=== PATIENT | female | born 1960 | race Caucasian/White ===

== ENCOUNTER → 2019-11-24 | Outpatient (CLI) | payer BC ==
--- NOTE | 2019-11-27 08:50 | Diagnostic Imaging Report ---
INDICATION: Routine screening. Comparison is made with prior mammogram from 04/08/2017 and 12/20/2015. 2-D and 3-D bilateral screening mammography was performed with a Computer Aided Detection (CAD) system. 3-D tomosynthesis was also performed and reviewed. FINDINGS: Scattered fibroglandular densities are identified bilaterally. The parenchymal pattern is stable. No mass or malignant appearing microcalcifications are seen. Axillae are unremarkable. IMPRESSION: No mammographic features suspicious for malignancy are identified. ACR BI-RADS Category 1: Negative. Result letter will be mailed to the patient. Note: At least 10% of breast cancer is not imaged by mammography. Dictated by: Dictated on workstation # [id number]
== END ==
LOC: RAD 07:51
PROVIDERS: ATTEND Obstetrics & Gynecology
DX: Z12.31 Encounter for screening mammogram for malignant neoplasm of breast (principal)
CPT/HCPCS: 77067

== ENCOUNTER 2020-09-15 16:10 | Emergency (ER) | payer BC ==
[~2020-09-15] VITALS: Ht 167 cm; Wt 83.9 kg
[2020-09-15] MEDS ORDERED: LACTATED RINGERS 1,000 ML IV ONE ×2 (16:30)
[2020-09-15] MEDS ORDERED: ONDANSETRON 4 MG/2 ML (SDV) Z0FRAN IVP ONE (16:30)
[2020-09-15 16:53] LABS: BASOPHILS % (AUTO) 0 % (0-10); EOSINOPHILS % (AUTO) 0 % (0-10); HEMATOCRIT 45 % (35-52); HEMOGLOBIN 14.5 g/dL (11.5-16.0); LYMPHOCYTES # (AUTO) 0.8 10^3/uL (1.0-4.0); LYMPHOCYTES % (AUTO) 11 % (12-44); MEAN CORPUSCULAR HEMOGLOBIN 27 pg (25-34); MEAN CORPUSCULAR HGB CONC 32 g/dL (32-36); MEAN CORPUSCULAR VOLUME 84 fL (80-99); MEAN PLATELET VOLUME 9.5 fL (9.0-12.2); MONOCYTES # (AUTO) 0.5 10^3/uL (0.0-1.0); MONOCYTES % (AUTO) 7 % (0-12); NEUTROPHILS # (AUTO) 5.7 10^3/uL (1.8-7.8); NEUTROPHILS % (AUTO) 81 % (42-75); PLATELET COUNT 242 10^3/uL (130-400); WHITE BLOOD COUNT 7.1 10^3/uL (4.3-11.0)
[2020-09-15 16:56] LABS: ABG BASE EXCESS 2.2 MMOL/L (-2.5-2.5); ABG OXYGEN SATURATION 93 % (94-100); ABG PCO2 32 MMHG (35-45); ABG PH 7.51 (7.37-7.43); ABG PO2 64 MMHG (79-93); ABG TCO2 26.3 MMOL/L (21.0-31.0); ALLENS TEST YES-POS; INSPIRED O2 RA; PATIENT TEMP 97.8; VENTILATOR NO
[2020-09-15 17:02] LABS: ALBUMIN 4.1 GM/DL (3.2-4.5); CHLORIDE 100 MMOL/L (98-107); POTASSIUM 3.5 MMOL/L (3.6-5.0); SODIUM 139 MMOL/L (135-145)
[2020-09-15 17:03] LABS: CALCIUM 9.6 MG/DL (8.5-10.1)
[2020-09-15 17:04] LABS: GLUCOSE 116 MG/DL (70-105); TOTAL PROTEIN 8.3 GM/DL (6.4-8.2)
[2020-09-15 17:05] LABS: CARBON DIOXIDE 23 MMOL/L (21-32)
--- NOTE | 2020-09-15 17:05 | ED GI ---
General Stated Complaint: COVID +, N/V Source of Information: Patient Exam Limitations: No Limitations (MARY MEI) History of Present Illness Date Seen by Provider: Sep 15, 2020 Time Seen by Provider: 16:18 Initial Comments Patient presents to the ER by private conveyance from home with chief complaint of nausea vomiting and dehydration for the past couple days. She is day 10 of symptoms for presumed COVID-19. Her is just about over a course of positive COVID-19. She is a patient of Dr. Seaman's. She was using some [id number] pills with no success treating her own nausea. She is now having diarrhea but she does have loss of sense of taste and cough. She does not have a history of lung disease. She only has hyperlipidemia. She called Dr. Seaman and was sent here for IV fluids and nausea medicine. She has a pulse oximeter at home and her oxygen sats have been in the upper 90s. (MARY MEI) Allergies and Home Medications Allergies Coded Allergies: No Known Drug Allergies (Unverified , 09/15/20) Home Medications Ondansetron 4 Mg Tab.rapdis, 4 MG PO Q6H PRN for NAUSEA/VOMITING Prescribed by: MARY MEI on 09/15/20 181 Patient Home Medication List Home Medication List Reviewed: Yes (MARY MEI) Review of Systems Review of Systems Constitutional: No chills, No diaphoresis EENTM: No Blurred Vision, No Double Vision Respiratory: Denies Cough, Denies Orthopnea Cardiovascular: Denies Chest Pain, Denies Lightheadedness Gastrointestinal: Denies Abdominal Pain, Denies Constipated, Denies Diarrhea; Nausea, Poor Appetite, Poor Fluid Intake, Vomiting Genitourinary: Denies Burning, Denies Discharge Musculoskeletal: No back pain, No joint pain (MARY MEI) All Other Systems Reviewed Negative Unless Noted: Yes (MARY MEI) Past Bqdesoc-Mttkkb-Rsieeb Hx Patient Social History Alcohol Use: Denies Use Recreational Drug Use: No Smoking Status: Never a Smoker Recent Foreign Travel: No Contact w/Someone Who Travel: No (MARY MEI) Physical Exam Vital Signs Vital Signs - First Documented 09/15/20 16:20 Temp 36.5 Pulse 106 Resp 20 B/P (MAP) 175/90 (118) Pulse Ox 95 O2 Delivery Room Air (PAULA GUTIERRESP) Vital Signs Capillary Refill : (MARY MEI) Height/Weight/BMI Height: '" Weight: lbs. oz. kg; BMI Method: General Appearance: WD/WN, mild distress HEENT: PERRL/EOMI, pharynx normal Neck: full range of motion, supple, normal inspection Respiratory: lungs clear, normal breath sounds, no respiratory distress, no accessory muscle use Cardiovascular: normal peripheral pulses, regular rate, rhythm Peripheral Pulses: 2+ Radial Pulses (R), 2+ Radial Pulses (L) Gastrointestinal: normal bowel sounds, non tender, soft Neurologic/Psychiatric: alert, normal mood/affect, oriented x 3 Skin: normal color, warm/dry (MARY MEI) Progress/Results/Core Measures Results/Orders Lab Results Laboratory Tests Test 09/15/20 16:33 09/15/20 17:08 09/15/20 17:36 Range/Units White Blood Count 7.1 4.3-11.0 10^3/uL Red Blood Count 5.37 H 3.80-5.11 10^6/uL Hemoglobin 14.5 11.5-16.0 g/dL Hematocrit 45 35-52 % Mean Corpuscular Volume 84 80-99 fL Mean Corpuscular Hemoglobin 27 25-34 pg Mean Corpuscular Hemoglobin Concent 32 32-36 g/dL Red Cell Distribution Width 13.2 10.0-14.5 % Platelet Count 242 130-400 10^3/uL Mean Platelet Volume 9.5 9.0-12.2 fL Immature Granulocyte % (Auto) 0 % Neutrophils (%) (Auto) 81 H 42-75 % Lymphocytes (%) (Auto) 11 L 12-44 % Monocytes (%) (Auto) 7 0-12 % Eosinophils (%) (Auto) 0 0-10 % Basophils (%) (Auto) 0 0-10 % Neutrophils # (Auto) 5.7 1.8-7.8 10^3/uL Lymphocytes # (Auto) 0.8 L 1.0-4.0 10^3/uL Monocytes # (Auto) 0.5 0.0-1.0 10^3/uL Eosinophils # (Auto) 0.0 0.0-0.3 10^3/uL Basophils # (Auto) 0.0 0.0-0.1 10^3/uL Immature Granulocyte # (Auto) 0.0 0.0-0.1 10^3/uL Blood Gas Puncture Site LR Blood Gas Patient Temperature 97.8 Arterial Blood pH 7.51 H 7.37-7.43 Arterial Blood Partial Pressure CO2 32 L 35-45 MMHG Arterial Blood Partial Pressure O2 64 L 79-93 MMHG Arterial Blood HCO3 25 23-27 MMOL/L Arterial Blood Total CO2 26.3 21.0-31.0 MMOL/L Arterial Blood Oxygen Saturation 93 L 94-100 % Arterial Blood Base Excess 2.2 -2.5-2.5 MMOL/L Prateek Test YES-POS Blood Gas Ventilator Setting NO Blood Gas Inspired Oxygen RA Sodium Level 139 135-145 MMOL/L Potassium Level 3.5 L 3.6-5.0 MMOL/L Chloride Level 100 98-107 MMOL/L Carbon Dioxide Level 23 21-32 MMOL/L Anion Gap 16 H 5-14 MMOL/L Blood Urea Nitrogen 11 7-18 MG/DL Creatinine 0.89 0.60-1.30 MG/DL Estimat Glomerular Filtration Rate > 60 BUN/Creatinine Ratio 12 Glucose Level 116 H 70-105 MG/DL Calcium Level 9.6 8.5-10.1 MG/DL Corrected Calcium 9.5 8.5-10.1 MG/DL Total Bilirubin 0.4 0.1-1.0 MG/DL Aspartate Amino Transf (AST/SGOT) 27 5-34 U/L Alanine Aminotransferase (ALT/SGPT) 26 0-55 U/L Alkaline Phosphatase 77 40-136 U/L Total Protein 8.3 H 6.4-8.2 GM/DL Albumin 4.1 3.2-4.5 GM/DL Coronavirus 2019 (RADHA) Positive H Negative Urine Color YELLOW Urine Clarity CLEAR Urine pH 7.5 5-9 Urine Specific [place] 1.020 1.016-1.022 Urine Protein NEGATIVE NEGATIVE Urine Glucose (UA) NEGATIVE NEGATIVE Urine Ketones NEGATIVE NEGATIVE Urine Nitrite NEGATIVE NEGATIVE Urine Bilirubin NEGATIVE NEGATIVE Urine Urobilinogen 0.2 < = 1.0 MG/DL Urine Leukocyte Esterase NEGATIVE NEGATIVE Urine RBC (Auto) TRACE-I NEGATIVE Urine RBC RARE /HPF Urine WBC RARE /HPF Urine Squamous Epithelial Cells 0-2 /HPF Urine Crystals NONE /LPF Urine Bacteria TRACE /HPF Urine Casts NONE /LPF Urine Mucus NEGATIVE /LPF Urine Culture Indicated NO (PAULA GUTIERRES) Micro Results Microbiology 09/15/20 Influenza Types A,B Antigen (NELL) - Final, Complete (NENITAPAULA PARDO) Medications Given in ED Current Medications Medications Dose Ordered Sig/Belkis Route Start Time Stop Time Status Last Admin Dose Admin Ketorolac Tromethamine 30 mg ONCE ONCE IVP 09/15/20 17:15 09/15/20 17:16 DC 09/15/20 17:17 30 MG Lactated Ringer's 1,000 ml @ 0 mls/hr Q0M ONCE IV 09/15/20 16:30 09/15/20 16:33 DC 09/15/20 16:54 1,000 MLS/HR Lactated Ringer's 1,000 ml @ 0 mls/hr Q0M ONCE IV 09/15/20 16:30 09/15/20 16:33 DC 09/15/20 17:38 1,000 MLS/HR Ondansetron HCl 8 mg ONCE ONCE IVP 09/15/20 16:30 09/15/20 16:33 DC 09/15/20 16:51 8 MG (PAULA GUTIERRES) Vital Signs/I&O 09/15/20 16:20 Temp 36.5 Pulse 106 Resp 20 B/P (MAP) 175/90 (118) Pulse Ox 95 O2 Delivery Room Air (PAULA GUTIERRES) Progress Progress Note #1: Time: 17:01 Progress Note Ondansetron, 2000 cc IV fluids basic labs and urine. A septic vital signs. Oxygen saturation 96%. Room air nonlabored breathing. Progress Note #2: Time: 17:15 Progress Note Nausea has resolved. The first liter is almost in. We will give her some Toradol as her labs are unremarkable. ABG does demonstrate some increased work of breathing. We have asked respiratory therapy to come down and try and qualify her for home oxygen as she is borderline needing it. Her oxygen saturation stays 95 to 96% but her ABG demonstrates that her PaO2 is mild hypoxemia and it is causing her to blow off her CO2 and make her respiratory alkalotic which may be further contributing to her nausea. Progress Note #3: Time: 18:10 Progress Note Respiratory therapy is here to do a walking challenge home O2 certification. We have passed care of the patient over to Dr. Paula Gutierres. She will help the patient set up for DME oxygen if she qualifies. (MARY MEI) Progress Note : Progress Note 1830 Per RT, patient maintained SaO2 92-93% with ambulation. Does not qualify for home O2. No SOA with ambulation. Not working discharge precautions and return instructions discussed with the patient. All questions answered. (PAULA GUTIERRES) Transfer of Care Time: 18:10 Care transferred to: Paula Gutierres (MARY MEI) Departure Impression Primary Impression: COVID-19 Additional Impressions: Dehydration determined by examination Hypoxemia Disposition: HOME, SELF-CARE Condition: Improved Departure-Patient Inst. Decision time for Depature: 17:37 (MARY MEI) Referrals: EMILIE SEAMAN MD NO,LOCAL PHYSICIAN (PCP) Primary Care Physician Patient Instructions: Coronavirus Disease 2019 (COVID-19) (DC), Dehydration, Adult ED Add. Discharge Instructions: Encourage lots of fluids especially sports drinks over the next several days. Ondansetron 1 tablet every 6 hours under the tongue as necessary for nausea and/or vomiting. Tylenol and/or Motrin as necessary for body aches, malaise or headache. Return to the ER if your oxygen sats are staying consistently below 94% or you are having other severe, worsening, or worrisome symptoms. Scripts Ondansetron (Ondansetron Odt) 4 Mg Tab.rapdis 4 MG PO Q6H PRN for NAUSEA/VOMITING, #15 TAB 0 Refills Prov: MARY MEI 09/15/20 Copy Copies To 1: EMILIE SEAMAN MD, TITUS J Sep 15, 2020 17:05 PAULA GUTIERRES Sep 15, 2020 18:32
[2020-09-15 17:06] LABS: BILIRUBIN,TOTAL 0.4 MG/DL (0.1-1.0)
[2020-09-15 17:08] LABS: ALKALINE PHOSPHATASE 77 U/L (40-136); CREATININE SERUM 0.89 MG/DL (0.60-1.30); GFR ESTIMATED > 60
[2020-09-15 17:09] LABS: BUN/CREATININE RATIO 12
[2020-09-15 17:11] LABS: ALANINE AMINOTRANSFERASE 26 U/L (0-55)
[2020-09-15] MEDS ORDERED: KETOROLAC 30 MG/ML VIAL ONE (17:11)
[2020-09-15] MEDS ORDERED: KETOROLAC 30 MG/ML VIAL IVP ONE (17:15)
[2020-09-15 17:46] LABS: BILIRUBIN,URINE NEGATIVE (NEGATIVE); CLARITY,URINE CLEAR; COLOR,URINE YELLOW; GLUCOSE, URINE (UA) NEGATIVE (NEGATIVE); KETONES,URINE NEGATIVE (NEGATIVE); LEUKOCYTE ESTERASE ,URINE NEGATIVE (NEGATIVE); NITRITE,URINE NEGATIVE (NEGATIVE); PH,URINE 7.5 (5-9); PROTEIN,URINE NEGATIVE (NEGATIVE)
--- NOTE | 2020-09-15 17:51 | NUR ---
SPOKE TO SPOUSE PER PT'S REQUEST. PLAN OF CARE WAS REVIEWED, UNDERSTANDING WAS VOICED.
[2020-09-15 18:05] LABS: BACTERIA,URINE TRACE /HPF; RBC,URINE RARE /HPF; SQUAMOUS EPITHELIAL CELL,UR 0-2 /HPF; WBC,URINE RARE /HPF
[2020-09-15] MEDS ORDERED: ONDA4TAB11 PO (18:12)
[2020-09-15] MEDS ORDERED: RX-ONDANSETRON 4 MG ODT (ZOFRAN) PPK #4 PO STA (18:13)
--- NOTE | 2020-09-15 18:16 | NUR ---
HOME O2 QUALIFICATION DONE. START TIME 1809 END 1815. PT HAD NO SAT DROP DURING THE WALK BELOW 92%. PT DOES NOT QUALIFY FOR HOME O2 AT THIS TIME. RN AND NOTIFIED.
[2020-09-15 18:50] VITALS: BP 139/96
== END 2020-09-15 18:50 | disposition home or self-care (01) ==
LOC: EDUNIT# 16:10 → ER 16:12
DX: U07.1 COVID-19 (principal); E86.0 Dehydration; R09.02 Hypoxemia
CPT/HCPCS: 80053; 81000; 82805; 85025; 87804; 99285; U0002; 36415; 87635

== ENCOUNTER → 2020-12-17 | Outpatient (CLI) | payer BC ==
[~2020-12-17] MED LIST: ONDA4TAB11 PO
--- NOTE | 2020-12-17 10:27 | Diagnostic Imaging Report ---
INDICATION: Postmenopausal state COMPARISON: None available FINDINGS: AP Spine L1-L4: [BMD (g/cm2): 1.079] [T-Score: -1.0] [Z-Score: 0.2] [BMD Previous: na] [BMD % Change: na] LT Hip Neck: [BMD (g/cm2): 0.987] [T-Score: -0.4] [Z-Score: 0.6] LT Hip Total: [BMD (g/cm2):1.048] [T-Score:0.3] [Z-Score: 1.0] [BMD Previous: na] [BMD % Change: na] RT Hip Neck: [BMD (g/cm2):0.904] [T-Score:-1.0] [Z-Score:0.0] RT Hip Total: [BMD (g/cm2):1.012] [T-score:0.0] [Z-Score:0.7] [BMD Previous:na] [BMD % Change:na] *Indicates significant change from prior examination based on 95% confidence level. World Health Organization criteria for BMD interpretation classify patients as Normal (T-score at or above -1.0), Osteopenic (T-score between -1.0 and -2.5) or Osteoporotic (T-score at or below -2.5). LIMITATIONS AND MODIFICATION: None. IMPRESSION: 1. Normal bone mineral density. However, bone mineral density within the hips and lumbar spine are at the lower limits of normal. 2. Baseline examination. 3. See below National Osteoporosis Foundation guidelines on when to potentially initiate pharmacologic therapy. Based on the National Osteoporosis Foundation Guidelines, pharmacologic treatment should be initiated in any of the following, unless clinical conditions suggest otherwise: * Any patient with prior fragility fracture of the hip or vertebrae. A spine fracture indicates 5X risk for subsequent spine fracture and 2X risk for subsequent hip fracture. * Osteoporosis (T-score <-2.5). * Postmenopausal women and men age 50 and older with low bone mass/osteopenia (T-score between -1.0 and -2.5) by DXA and 10-year major osteoporotic fracture greater than 20% or a 10-year probability of hip fracture greater than 3%. These fracture risks are supplied above in the FRAX score, if applicable. * Clinician judgement and/or patient preferences may indicate treatment for people with 10-year fracture probabilities above or below these levels. Dictated by: Dictated on workstation # [id number]
--- NOTE | 2020-12-17 12:51 | Diagnostic Imaging Report ---
INDICATION: Routine screening. Comparison is made with prior mammogram 11/24/2019 and 04/08/2017. 2-D and 3-D bilateral screening mammography was performed with CAD. Scattered fibroglandular densities are identified bilaterally. The parenchymal pattern is stable. No mass or malignant appearing microcalcifications are seen. Axillae are unremarkable. IMPRESSION: BI-RADS Category 1 No mammographic features suspicious for malignancy are identified. ACR BI-RADS Category 1: Negative. Result letter will be mailed to the patient. Note: At least 10% of breast cancer is not imaged by mammography. Dictated by: Dictated on workstation # [id number]
== END ==
LOC: RAD 09:34
PROVIDERS: ATTEND Obstetrics & Gynecology
DX: Z12.31 Encounter for screening mammogram for malignant neoplasm of breast (principal); Z13.820 Encounter for screening for osteoporosis; Z78.0 Asymptomatic menopausal state
CPT/HCPCS: 77063; 77067; 77080

== ENCOUNTER → 2021-03-24 | Outpatient (CLI) | payer BC ==
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
--- NOTE | 2021-03-24 11:23 | Diagnostic Imaging Report ---
INDICATION: Chronic right arm pain. TIME OF EXAM: 9:30 AM. TECHNIQUE: Multiple views of the right humerus were obtained. FINDINGS: The alignment at the shoulder and elbow appears normal. The humerus is intact. No fracture is identified. The soft tissues are unremarkable. IMPRESSION: No acute bony abnormality is detected. Dictated by: Dictated on workstation # [id number]
== END ==
LOC: RAD 08:46
PROVIDERS: ATTEND Family Medicine
DX: M25.511 Pain in right shoulder (principal); M79.601 Pain in right arm
CPT/HCPCS: 73030; 73060

== ENCOUNTER → 2022-04-13 | Outpatient (CLI) | payer BC ==
--- NOTE | 2022-04-13 10:54 | Diagnostic Imaging Report ---
INDICATION: Routine screening. COMPARISON: 12/17/2020 and 11/24/2019. TECHNIQUE: 2D and 3D bilateral screening mammography was performed with CAD. FINDINGS: Scattered fibroglandular densities are identified bilaterally. The parenchymal pattern is stable. No mass or malignant-appearing microcalcifications are seen. The axillae are unremarkable. IMPRESSION: No mammographic features suspicious for malignancy are identified. ACR BI-RADS Category 1: Negative. Result letter will be mailed to the patient. Note: At least 10% of breast cancer is not imaged by mammography. Dictated by: Dictated on workstation # [id number]
== END ==
LOC: RAD 08:36
PROVIDERS: ATTEND Family Medicine
DX: Z12.31 Encounter for screening mammogram for malignant neoplasm of breast (principal); Z13.820 Encounter for screening for osteoporosis; M81.0 Age-related osteoporosis without current pathological fracture
CPT/HCPCS: 77063; 77067